=== PATIENT | male | born 1945 | race Caucasian/White ===

== ENCOUNTER 2019-04-30 11:00 | Day surgery (SDC) ==
--- NOTE | 2019-04-11 08:19 | EKG Report ---
Test Performed on : 04/11/2019 07:21:29 AM Test Reason : PAT Blood Pressure : / mmHG Vent. Rate : 064 BPM Atrial Rate : 064 BPM P-R Int : 218 ms QRS Dur : 090 ms QT Int : 382 ms P-R-T Axes : 065 -48 063 degrees QTc Int : 394 ms Sinus rhythm. with 1st degree AV block. 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
[2019-04-11 08:22] LABS: URINE SOURCE CLEAN CATCH
[2019-04-11 08:38] LABS: BASO# 0.07 X1000 (0.0-0.2); BASO% 1.1 % (0.0-0.8); EOS# 0.15 X1000 (0.0-0.7); EOS% 2.3 % (0.0-10.0); HEMATOCRIT 45.9 % (42.0-52.0); HEMOGLOBIN 15.5 g/dL (14.0-18.0); IMM GRAN# 0.04 X1000 (0.0-0.04); IMM GRAN% 0.6 % (0.0-0.5); LYMPH# 1.68 X1000 (1.2-3.4); LYMPH% 26.3 % (20.5-51.1); MCH 28.5 PG (27-31); MCHC 33.8 g/dL (33-37); MCV 84.5 FL (81-99); MONO# 0.45 X1000 (0.11-0.59); MPV 10.7 FL (7.4-10.4); NEUT# 4.01 X1000 (1.4-6.5); NEUT% 62.7 % (42.2-75.2); PLT 218 X1000 (130-400); RBC 5.43 XMIL (4.7-6.1); RDW 13.3 % (11.5-14.5)
[2019-04-11 08:41] LABS: BILIRUBIN URINE NEGATIVE (NEGATIVE); BLOOD URINE NEGATIVE (NEGATIVE); COLOR YELLOW; GLUCOSE URINE TRACE mg/dL (NEGATIVE); KETONE URINE NEGATIVE (NEGATIVE); LEUKOCYTES URINE NEGATIVE (NEGATIVE); NITRITE URINE NEGATIVE (NEGATIVE); PH URINE 5.5; PROTEIN URINE NEGATIVE (NEGATIVE); SP GRAVITY URINE 1.025; TURBIDITY URINE CLEAR (CLEAR); UROBILINOGEN URINE NORMAL (NORMAL)
[2019-04-11 08:44] LABS: UR EPITHELIAL CELLS <10 /HPF (<10); URINE BACTERIA NEGATIVE /HPF; URINE RBC <10 /HPF (<10); URINE WBC <10 /HPF (<10)
[2019-04-11 08:47] LABS: INR 0.97; PROTIME 13.6 Seconds (11.0-16.0)
[2019-04-11 08:48] LABS: PTT 29.3 Seconds (22.3-41.8)
[2019-04-11 08:53] LABS: HEMOGLOBIN A1C 6.4 % (4.8-6.0)
[2019-04-11 08:54] LABS: AGAP 11; ALBUMIN 4.2 g/dL (3.5-5.0); BUN 16 mg/dL (8-22); CALCIUM 9.4 mg/dL (8.8-10.2); CHLORIDE 103 mmol/L (98-107); COSMO 281; ESTIMATED GFR > 60; GLUCOSE 141 mg/dL (70-104); SODIUM 139 mmol/L (136-145); TCO2 25 mmol/L (25-35)
[2019-04-30] MEDS ORDERED: COLACE ONE (11:54)
[2019-04-30] MEDS ORDERED: PEPCID ONE (11:55)
[2019-04-30] MEDS ORDERED: LYRICA ONE (11:55)
[2019-04-30] MEDS ORDERED: CELEBREX ONE (11:55)
[2019-04-30] MEDS ORDERED: REGLAN ONE (11:55)
[2019-04-30] MEDS ORDERED: KEFZOL 1 GM/D5W 2 GM/100 ML IVPB ONE (11:56)
[2019-04-30] MEDS ORDERED: LR 1,000 ML ONE (11:56)
[2019-04-30] MEDS ORDERED: TORADOL ONE (12:17)
[2019-04-30] MEDS ORDERED: DURAMORPH ONE (12:17)
[2019-04-30] MEDS ORDERED: VANCOMYCIN ONE (12:17)
[2019-04-30] MEDS ORDERED: SENSORCAINE 0.5%-EPI 1:200,000 ONE (12:17)
[2019-04-30] MEDS ORDERED: SODIUM CHLORIDE 0.9% ONE (12:18)
[2019-04-30] MEDS ORDERED: EXPAREL 1.3% ONE (12:18)
[2019-04-30] MEDS ORDERED: CYKLOKAPRON 1,000 MG/NS 2,000 MG/200 ML IVPB ONE (12:18)
[2019-04-30] MEDS ORDERED: NEOSPORIN G.U. IRRIGANT ONE ×2 (12:18→12:49)
[2019-04-30] MEDS ORDERED: OFIRMEV 1000 MG/ISOTONIC SOLN 1,000 MG/100 ML BOTTLE ONE (13:34)
[2019-04-30] MEDS ORDERED: ZOFRAN ONE (13:34)
[2019-04-30] MEDS ORDERED: DIPRIVAN 1% ONE ×2 (13:34)
[2019-04-30] MEDS ORDERED: FENTANYL ONE (13:34)
[2019-04-30] MEDS ORDERED: DECADRON ONE (13:34)
[2019-04-30 13:55] LABS: URINE SOURCE CATH
[2019-04-30 14:00] LABS: BILIRUBIN URINE NEGATIVE (NEGATIVE); BLOOD URINE SMALL (NEGATIVE); COLOR YELLOW; GLUCOSE URINE NEGATIVE (NEGATIVE); KETONE URINE NEGATIVE (NEGATIVE); LEUKOCYTES URINE NEGATIVE (NEGATIVE); NITRITE URINE NEGATIVE (NEGATIVE); PH URINE 5.5; PROTEIN URINE TRACE mg/dL (NEGATIVE); SP GRAVITY URINE 1.028; TURBIDITY URINE CLEAR (CLEAR); UROBILINOGEN URINE NORMAL (NORMAL)
[2019-04-30 14:01] LABS: UR EPITHELIAL CELLS >10 /HPF (<10); URINE BACTERIA NEGATIVE /HPF; URINE RBC 20-40 /HPF (<10); URINE WBC <10 /HPF (<10)
[2019-04-30] MEDS ORDERED: NS 1,000 ML ONE (14:47)
[2019-04-30] MEDS ORDERED: ZOFRAN ODT PO PRN (15:00)
[2019-04-30] MEDS ORDERED: ZOFRAN IV PRN (15:00)
[2019-04-30] MEDS ORDERED: MILK OF MAGNESIA PO PRN (15:00)
[2019-04-30] MEDS ORDERED: MORPHINE IV PRN ×3 (15:00)
[2019-04-30] MEDS ORDERED: OXY IR PO PRN (15:00)
--- NOTE | 2019-04-30 15:14 | OPERATIVE NOTE ---
PROCEDURE DATE: 04/30/2019 PREOPERATIVE DIAGNOSIS: Left knee degenerative joint disease. POSTOP DIAGNOSIS: Left knee degenerative joint disease. PROCEDURE: Left total knee arthroplasty using [facility] size 7 femoral component, a size 7 tibial base plate, a 16 mm articular insert and 38 mm patellar component. ANESTHESIA: Spinal. SURGEON: Dr. Bergeron. INSULATION BLANKET MAKER: GEOVANNY Tineo was present throughout the case whose assistance was critical for exposure, placement implant, decision making, closure. His assistance was necessary for successful completion of the case. BLOOD LOSS: Minimal. TOURNIQUET TIME: Approximately an hour and half. DESCRIPTION OF PROCEDURE: The patient brought to the operative suite and placed in supine position. After successful administration of general anesthesia, a well-padded tourniquet was placed left proximal thigh, left lower extremity was prepped and draped in usual sterile fashion. Leg was exsanguinated. Tourniquet insufflated to 350 torr. A longitudinal incision was made beginning superior pole patella extended distally tibia tuberosity. The medial arthrotomy was made. The medial capsule was elevated off the medial tibial plateau. The ACL, PCL, medial meniscus, lateral meniscus were excised. A drill was entered in the center of distal femur. Intramedullary guide was placed. Distal cutting block was pinned in place, distal cut made with oscillating saw. Marginal osteophytes removed with rongeur. Attention was directed the tibia. A drill was entered the center of the tibia. Intramedullary guide was placed, alignment checked with drop chelsey referencing off the anterior cortex tibia and the second ray of the foot and taking 4 mm off the low side the tibia which in this case was medially. The tibial cutting block was pinned in place and the articular surface the tibial plateau was removed with oscillating saw. Marginal osteophytes removed with rongeur. He was found to be tight medially. A medial release was performed and the knee was balanced at 16 mm. The flexion gap was then set to 25 mm to account for 9 mm of the posterior condyle of the femur and once proper rotation was set this was pinned and the femur was sized to a size 7. A size 7 femur was pinned [address] and then the anterior cuts, chamfer cuts and posterior condylar cuts were made with oscillating saw. Marginal osteophytes removed with rongeur. Cutting block was pinned in place. Box cut was made box osteotome and oscillating saw. Posterior condyle osteophytes removed the curved osteotome and rongeur. Using the anterior chamber and the bone from the notch the drill hole was plugged. Once this was completed attention was directed to the tibia. The tibia sized to size 7, size 7 guide was used for the fin punch. The tibial trial, femoral trial and 16 mm articular insert were placed, taken through range of motion, found have excellent alignment, balancing and range of motion. Attention was then directed to patella. 9 mm of the articular surface patella removed with oscillating saw, patella sized to size 38, size 38 guide was used to drill peg holes. The lateral facet was chamfered 30 to 45 degrees. Patella trial was placed taken through range of motion found have excellent patella tracking. All trials were then removed. Knee was copiously irrigated and dried being certain all bone debris was removed. The tibial component, femoral component and patella component were cemented into place excess cement removed with a [place]. Once the cement hardened excess cement was again removed osteotome. Knee was again copiously irrigated and dried, being certain all bone and cement debris removed. The trial articular insert was removed. The knee was copiously infiltrated with Exparel including posterior capsule, anterior capsule, intramuscular and subcutaneous tissue. The tourniquet was deflated and hemostasis was obtained with electrocautery. A drain was placed exiting superior laterally and buried in the lateral gutter. The knee was again copiously irrigated with normal saline containing irrigant and Vashe irrigation. The Definitive 16 mm articular insert was locked into place and then the medial arthrotomy was closed with #1 Vicryl. The skin edges approximated with 2-0 Vicryl. Skin was closed with Prineo and sterile dressing was applied. The patient tolerated the procedure well without complication. At the end the procedure, all counts correct x2. The patient transferred to the recovery room in stable condition. cc: Chao Bergeron MD
[2019-04-30] MEDS: OXY IR PO PRN ×2 (16:28→17:15)
[2019-04-30] MEDS: NS 1,000 ML IV SCH ×2 (18:30→20:50)
[2019-04-30] MEDS: PERIDEX MT SCH (20:43)
[2019-04-30] MEDS: TYLENOL PO SCH (20:46)
[2019-04-30] MEDS: LYRICA PO SCH (20:46)
[2019-04-30] MEDS: ULTRAM PO SCH (20:46)
[2019-04-30] MEDS: COLACE PO SCH (20:46)
[2019-04-30] MEDS: CELEBREX PO SCH (20:48)
[2019-04-30] MEDS: KEFZOL 2 GM/D5W 2 GM/50 ML IVPB IV SCH (20:48)
[2019-05-01] MEDS: ULTRAM PO SCH ×2 (04:21→10:41)
[2019-05-01] MEDS: KEFZOL 2 GM/D5W 2 GM/50 ML IVPB IV SCH (04:22)
[2019-05-01] MEDS: TYLENOL PO SCH ×2 (04:22→10:40)
[2019-05-01] MEDS: NS 1,000 ML IV SCH (05:01)
[2019-05-01 06:02] LABS: HEMOGLOBIN 13.4 g/dL (14.0-18.0)
[2019-05-01 06:03] LABS: HEMATOCRIT 40.1 % (42.0-52.0)
[2019-05-01 06:24] LABS: AGAP 12; BUN 20 mg/dL (8-22); CALCIUM 8.7 mg/dL (8.8-10.2); CHLORIDE 102 mmol/L (98-107); COSMO 278; CREATININE 0.8 mg/dL (0.7-1.2); ESTIMATED GFR > 60; GLUCOSE 153 mg/dL (70-104); POTASSIUM 4.6 mmol/L (3.5-5.1); SODIUM 136 mmol/L (136-145); TCO2 22 mmol/L (25-35)
[2019-05-01] MEDS ORDERED: ASPIRIN PO SCH (09:00)
[2019-05-01] MEDS ORDERED: PEPCID PO SCH (09:00)
[2019-05-01] MEDS ORDERED: MOBIC PO SCH (09:00)
[2019-05-01] MEDS ORDERED: DECADRON IV ONE (09:00)
[2019-05-01] MEDS ORDERED: PRILOSEC PO SCH (09:00)
[2019-05-01] MEDS ORDERED: TOPROL XL PO SCH (09:00)
[2019-05-01] MEDS: COLACE PO SCH (10:40)
[2019-05-01] MEDS: PERIDEX MT SCH (10:40)
[2019-05-01] MEDS: LYRICA PO SCH (10:42)
[2019-05-01] MEDS: CELEBREX PO SCH (10:48)
[2019-05-01 11:41] VITALS: BP 117/51
--- NOTE | 2019-05-01 15:16 | DISCHARGE SUMMARY ---
ADMISSION DATE: 04/30/2019 DISCHARGE DATE: 05/01/2019 DISCHARGE DIAGNOSIS: Left knee degenerative joint disease status post left total knee arthroplasty. DISCHARGE MEDICATIONS: See discharge med list. DISPOSITION: The patient discharged home with home health physical therapy, instructed to return to see Dr. Bergeron next , instructed to return for any signs or symptoms of infection or deep venous thrombosis. HOSPITAL COURSE: On the day of admission, patient underwent a left total knee arthroplasty. His postoperative course was unremarkable. At discharge, he is afebrile, tolerating a regular diet, ambulating well with physical therapy. His wound is clean, dry, intact without sign of infection. He has good early range of motion of his knee. His hematocrit is stable at 40%. He is discharged home in stable condition, instructed to follow up as described above. cc: Chao Bergeron MD
== END 2019-05-01 15:49 | disposition home or self-care (01) ==
LOC: 4N 11:00 → OR 11:00
PROVIDERS: ATTEND Orthopaedic Surgery